=== PATIENT | female | born 1995 | race African-American/Black ===

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

== ENCOUNTER 2022-03-25 21:36 | Emergency (ER) | payer OTHER ==
[2022-03-25 21:41] VITALS: BP 113/68; PULSE 69; RESP 19; TEMP 97.9; BMI 30.4
[2022-03-25] MEDS ORDERED: LIDOCAINE PATCH REMOVAL MC SCH (22:00)
[2022-03-25] MEDS ORDERED: diazePAM 5 MG TABLET PO ONE (22:45)
[2022-03-25] MEDS ORDERED: LIDOCAINE 5% TOPICAL PATCH TP ONE (22:45)
[2022-03-25] MEDS ORDERED: diazePAM 5 MG TABLET ONE (22:47)
[2022-03-25] MEDS ORDERED: LIDOCAINE 5% TOPICAL PATCH ONE (22:47)
== END 2022-03-25 23:32 | disposition home or self-care (01) ==
LOC: JERFT 21:36
DX: M54.16 Radiculopathy, lumbar region (principal)
CPT/HCPCS: 72100-TC-FY; 99283-25